=== PATIENT | female | born 1965 | race Caucasian/White ===

== ENCOUNTER 2024-10-04 08:21 | Outpatient (RCR) | payer MEDICAID, SELFPAY ==
--- NOTE | 2024-10-04 09:06 | PTNOTE_ITS ---
PT OP Initial Eval Patient Information Outpatient Physical Therapy Treatment Date: 10/04/24 Visit Reasons: Low back pain Medical Diagnosis: M54.51 M25.50 Treatment Dx #1: LBP with B LE radiculopathy Start of Care: 10/04/24 Date of Onset: 5 months ago Smoking Status Smoking Status: Never smoker Initial Assessment Subjective: Pt is 59 yr old female with c/o LBP. Increased LBP with bending, prolonged sitting and it interrupts sleep. The pain radiates down the LE's when it gets bad. PMH: HTN Imaging: MRI in EMR L5-S1 7 mm central lumbar disc bulge, L4-L5 prominent facet arthropathy moderate right L4 ganglionic compression, L3-L4 5 mm left paracentral disc Pt goal: to get rid of the pain Objective: Trunk ArOM: ? B SB 50% of normal with pain to L ? Extension: 20% with pain around L4-5, L5-S1 ? Flexion: 6 from floor with LBP ? B rotation: 60% with pain ? TTP: moderate paraspinals L5-S1 ? Neuro: B SLR: positive Assessment: ? Pt presents with trunk flexion sensitivity and overlying myofascial pain ? and TTP around L5-S1 consistent with MRI that revels ? lower lumbar disc bulge(s) with radiculopathy. Pt requires skilled therapy in order to decrease ? pain and improve sitting/standing tolerance and has poor rehab potential. Short Term and Care Home Goals 1. Ind with HEP ? 2. Improved sitting/standing tolerance to 30 minutes with <=4/10 LBP ? 3. Decreased lower paraspinal TTP from mod to min 4. Improved HH chore tolerance to at least 30 minutes with <=3/10 LBP and no ?increase in LE ssx ? Treatment Plan ? 1. Manual therapy ? 2. Therex ? 3. Modalities as indicated, moist heat, ice, estim, mechanical traction Frequency and Duration: 1-2x a week for trial visits. If progressing continue up to 12 visits total Certification Dates: 10/04/24 to 01/02/24 Procedure Charges OP PT Eval Mod Complex 30 minutes: Yes
== END 2024-10-20 23:59 | disposition home or self-care (01) ==
LOC: CPTX 08:21
PROVIDERS: PCP Nurse Practitioner Family; Referring Provider Nurse Practitioner Family; Visit Provider Nurse Practitioner Family
DX: M54.16 Radiculopathy, lumbar region (principal)
CPT/HCPCS: 97162